=== PATIENT | female | born 1945 | race American Indian/Alaskan Native ===

== ENCOUNTER 2017-12-28 10:10 | Outpatient (CLI) | payer MEDICARE ==
--- NOTE | 2017-12-28 14:08 | Mammography Report ---
BILATERAL DIGITAL SCREENING MAMMOGRAM with CAD : 12/28/17 10:10:00 CLINICAL: Routine screening. COMPARISON:None available. FINDINGS: The breasts are heterogeneously dense, which may obscure small masses.Bilateral benign vascular calcifications. No mass, architectural distortion or suspicious calcifications. IMPRESSION: No mammographic evidence of malignancy. BI-RADS CATEGORY: 2 -- Benign RECOMMENDATION: Routine mammographic screening in one year. COMMENT: Patient follow-up letters are generated by our [employer] application.
== END 2017-12-28 10:11 | disposition home or self-care (01) ==
LOC: MAMMO 10:10
PROVIDERS: ATTEND Internal Medicine
DX: Z12.31 Encounter for screening mammogram for malignant neoplasm of breast (principal)
CPT/HCPCS: 77067

== ENCOUNTER 2019-01-02 09:37 | Outpatient (CLI) | payer MEDICARE ==
--- NOTE | 2019-01-02 16:20 | Mammography Report ---
DIGITAL SCREENING MAMMOGRAM WITH CAD, 01/02/2019 INDICATION: Routine screening mammography. TECHNIQUE: Digital bilateral 2D mammography was obtained in the craniocaudal and mediolateral obliq ue projections. This examination was interpreted with the benefit of Computer-Aided Detection analysi s. COMPARISON: 12/28/2017 FINDINGS: Breast Density: The breasts are heterogeneously dense, which may obscure small masses. There is no evidence of dominant mass, suspicious calcifications or architectural distortion in eithe r breast. Bilateral benign arterial calcifications. IMPRESSION: No mammographic evidence of malignancy. Follow up recommendation: Routine yearly BI-RADS Category 2: Benign. A "normal" or negative report should not discourage follow up or biopsy of a clinically significant f inding. A written summary of these findings will be mailed to the patient. The patient will be entered into a mammography reporting system which will generate a reminder letter for the patient's next appointmen t at the appropriate interval. The [employer] recommends yearly mammograms starting at age 40 and continuing as l sandra as a woman is in good health. Breast MRI is recommended for women with an approximate 20-25% or greater lifetime risk of breast cancer, including women with a strong family history of breast or ova batsheva cancer or who have been treated for Hodgkin's disease. Signer Name: Omari Aleman MD Signed: 01/02/2019 4:15 PM Workstation Name: [id number]
== END 2019-01-02 09:38 | disposition home or self-care (01) ==
LOC: MAMMO 09:37
PROVIDERS: ATTEND Internal Medicine
DX: Z12.31 Encounter for screening mammogram for malignant neoplasm of breast (principal)
CPT/HCPCS: 77067

== ENCOUNTER 2019-05-16 10:02 | Inpatient (IN) | payer MEDICARE ==
--- NOTE | 2019-05-16 10:19 | Emergency Department Report ---
HPI - General Time Seen by Provider: 05/16/19 10:05 - HPI HPI: Room 1 The patient is a 74-year-old female present with a chief complaint of expressive aphasia. Patient states her last known well time was last night around 20: 00 when she was speaking with her sister over the phone. Patient did not notice any abnormalities. The patient states she went to the bank this morning the [place] noticed that she had difficulty getting her words out and that her "mouth looked twisted." EMS was called and the patient was transported to the ED. The patient states she feels as though she is having difficulty getting her words out at times but it seems like it is improving although she is not yet back to her baseline. Patient denies weakness or numbness. ED Past Medical Hx - Past Medical History Previous Medical History?: No - Surgical History Additional Surgical History: Lipoma removal - Family History Family history: no significant - Social History Smoking Status: Never Smoker Substance Use Type: None ED Review of Systems ROS: Stated complaint: STROKE Other details as noted in HPI Constitutional: no symptoms reported Eyes: denies: eye pain ENT: denies: throat pain Respiratory: no symptoms reported Cardiovascular: denies: chest pain Endocrine: no symptoms reported Gastrointestinal: denies: abdominal pain Genitourinary: denies: dysuria Musculoskeletal: denies: back pain Neurological: other (Aphasia) Physical Exam - Physical Exam Physical Exam: GEN: WD WN lying on stretcher in NAD HEENT: NCAT, EOMI NECK: trachea midline PULM: CTA bilat. No resp distress noted CV: rrr no m/r/g ABD: s/nt/nd SKIN: no diaphoresis NEURO: GCS 15. Cranial nerves II through XII grossly intact, no drift. Patient exhibits expressive aphasia at times MUSCULOSKELETAL: No evidence of acute injury ED Medical Decision Making - Lab Data Result diagrams: 05/16/19 10:16 05/16/19 10:16 Laboratory Tests 05/16/19 05/16/19 05/16/19 10:16 10:16 10:16 WBC 2.5 L RBC 3.93 Hgb 13.1 Hct 38.4 MCV 98 H MCH 33 H MCHC 34 RDW 13.1 L Plt Count 146 Lymph % (Auto) 22.4 Alexander % (Auto) 9.8 H Eos % (Auto) 1.0 Baso % (Auto) 0.5 Lymph # 0.6 L Alexander # 0.2 Eos # 0.0 Baso # 0.0 Seg Neutrophils % 66.3 Seg Neutrophils # 1.6 L PT 12.6 INR 0.93 APTT 21.7 L Thrombin Time 16.8 Sodium 137 Potassium 4.2 Chloride 99.0 Carbon Dioxide 23 Anion Gap 19 BUN 22 H Creatinine 1.3 H Estimated GFR 49 BUN/Creatinine Ratio 17 Glucose 107 H POC Glucose Calcium 9.6 Troponin T < 0.010 05/16/19 10:37 WBC RBC Hgb Hct MCV MCH MCHC RDW Plt Count Lymph % (Auto) Alexander % (Auto) Eos % (Auto) Baso % (Auto) Lymph # Alexander # Eos # Baso # Seg Neutrophils % Seg Neutrophils # PT INR APTT Thrombin Time Sodium Potassium Chloride Carbon Dioxide Anion Gap BUN Creatinine Estimated GFR BUN/Creatinine Ratio Glucose POC Glucose 93 Calcium Troponin T - EKG Data -: EKG Interpreted by Me EKG shows normal: sinus rhythm Rate: normal - EKG Data When compared to previous EKG there are: previous EKG unavailable Interpretation: nonspecific ST-T wave brigida (T wave inversion in lead III) - Radiology Data Radiology results: report reviewed (CT head, CTA brain, CTA neck), image reviewed (CT head, CTA brain, CTA neck) Findings [facility] [address] [place] [address] Cat Scan Report Signed Patient: ROXANNE DEMPSEY MR#: [id number] 1221 : 1945 Acct:[id number] Age/Sex: 74 / F ADM Date: 05/16/19 Loc: ED Attending Dr: Ordering Physician: KENROY HAGER MD Date of Service: 05/16/19 Procedure(s): CT head/brain wo con Accession Number(s): [id number] cc: KENROY HAGER MD CT HEAD WITHOUT CONTRAST INDICATION : neuro deficits <6hrs or sx present upon awakening. TECHNIQUE: Axial imaging performed from the skull apex through the skull base without the use of contrast. Sagittal and coronal reformatted images. All CT scans at this location are performed using CT dose reduction for ALARA by means of automated exposure control. COMPARISON: None FINDINGS: Parenchyma: Mild age- appropriate volume loss and chronic white matter changes are identified. No evidence for hemorrhage, mass or large area of acute ischemia on noncontrast CT. No chronic infarct or extra-axial fluid collection. Ventricles: Ventricles are normal in size and appear symmetric. Bones: No acute osseous abnormality. Sinuses: Sinuses and mastoid air cells are clear. Soft tissues: Soft tissues including the orbits appear normal. IMPRESSION: No acute abnormality. Age appropriate volume loss and chronic white matter changes. These findings were discussed with Dr. Hager in the emergency department at 1019 hours EST. Signer Name: Kane Kaye Jr, MD Signed: 05/16/2019 10:20 AM Workstation Name: [id number] Transcribed By: TTR Dictated By: KANE KAYE JR, MD Electronically Authenticated By: KANE KAYE JR, MD Signed Date/Time: 05/16/19 1020 DD/ 1017 TD/TT: Findings [facility] [address] [place] [address] Cat Scan Report Signed Patient: ROXANNE DEMPSEY MR#: [id number] 1221 : 1945 Acct:[id number] Age/Sex: 74 / F ADM Date: 05/16/19 Loc: ED Attending Dr: Ordering Physician: MICHELLE HAWK Date of Service: 05/16/19 Procedure(s): CT angio neck Accession Number(s): [id number] cc: MICHELLE HAWK CTA NECK WITH CONTRAST HISTORY: Stroke COMPARISON: None. TECHNIQUE: Routine CTA of the neck is performed. 3-D/MIP reformats were postprocessed. Percentage stenosis is determined by direct quantitative measurements of diseased internal carotid artery diameter compared with normal distal internal carotid artery reference segments or by criteria similar to NASCET where applicable. All CT scans at this location are performed using CT dose reduction for ALARA by means of automated exposure control. CONTRAST: 100 ml of Omnipaque 350 FINDINGS: Aortic arch: No significant abnormality. Cervical vertebral arteries: No significant abnormality. The left vertebral artery arises from the aortic arch distal to the takeoff of the left subclavian artery. The right vertebral artery is dominant. Common carotid arteries: No significant abnormality. Minimal calcific plaques are noted in the proximal right ICA. Cervical internal carotid arteries: No significant abnormality. Additional findings: None. IMPRESSION: No large vessel occlusion or stenosis in the neck. CTA HEAD WITH CONTRAST HISTORY: Stroke COMPARISON: None. TECHNIQUE: Routine non- contrast CT Head, CTA of the head and post-contrast CT Head are performed. 3- D/MIP reformats postprocessed. All CT scans at this location are performed using CT dose reduction for ALARA by means of automated exposure control CONTRAST: 100 ml of Omnipaque 350 FINDINGS: CTA Head: Intracranial vertebral arteries: No significant abnormality. The right vertebral artery is dominant. Basilar artery: No significant abnormality. Posterior cerebral arteries: No significant abnormality. Intracranial internal carotid arteries: No significant abnormality. Anterior cerebral arteries: No significant abnormality. Middle cerebral arteries: No significant abnormality. Dural venous sinuses:Not optimally opacified. No significant abnormality. Additional findings: None. IMPRESSION: No evidence for large vessel occlusion, stenosis or aneurysm. Signer Name: Kane Kaye Jr, MD Signed: 05/16/2019 11:16 AM Workstation Name: [id number] Transcribed By: TTR Dictated By: KANE KAYE JR, MD Electronically Authenticated By: KANE KAYE JR, MD Signed Date/Time: 05/16/19 1116 DD/ 1110 TD/TT: - Differential Diagnosis CVA Critical care attestation.: If time is entered above; I have spent that time in minutes in the direct care of this critically ill patient, excluding procedure time. ED Disposition Clinical Impression: CVA (cerebral vascular accident) Disposition: 09 OP ADMIT IP TO THIS HOSP Is pt being admited?: Yes Does the pt Need Aspirin: Yes Condition: Fair Referrals: PRIMARY CARE, [Primary Care Provider] - 3-5 Days Time of Disposition: 11:30 (Hospitalist paged (Dr Carson))
[2019-05-16 10:23] LABS: Basophils % (Auto) 0.5 % (0.0-1.8); Hematocrit 38.4 % (30.3-42.9); Hemoglobin 13.1 gm/dl (10.1-14.3); Lymphocytes # (Auto) 0.6 K/mm3 (1.2-5.4); Lymphocytes % (Auto) 22.4 % (13.4-35.0); Mean Corpuscular HGB Conc 34 % (30-34); Mean Corpuscular Volume 98 fl (79-97); Monocytes # (Auto) 0.2 K/mm3 (0.0-0.8); Monocytes % (Auto) 9.8 % (0.0-7.3); Platelet Count 146 K/mm3 (140-440); Red Blood Count 3.93 M/mm3 (3.65-5.03); Red Cell Distribution Width 13.1 % (13.2-15.2)
--- NOTE | 2019-05-16 10:24 | Cat Scan Report ---
CT HEAD WITHOUT CONTRAST INDICATION : neuro deficits <6hrs or sx present upon awakening. TECHNIQUE: Axial imaging performed from the skull apex through the skull base without the use of con trast. Sagittal and coronal reformatted images. All CT scans at this location are performed using C T dose reduction for ALARA by means of automated exposure control. COMPARISON: None FINDINGS: Parenchyma: Mild age-appropriate volume loss and chronic white matter changes are identified. No bennett dence for hemorrhage, mass or large area of acute ischemia on noncontrast CT. No chronic infarct or e xtra-axial fluid collection. Ventricles: Ventricles are normal in size and appear symmetric. Bones: No acute osseous abnormality. Sinuses: Sinuses and mastoid air cells are clear. Soft tissues: Soft tissues including the orbits appear normal. IMPRESSION: No acute abnormality. Age appropriate volume loss and chronic white matter changes. These findings were discussed with Dr. Valerio in the emergency department at 1019 hours EST. Signer Name: Kane Kaye Jr, MD Signed: 05/16/2019 10:20 AM Workstation Name: [id number]
[2019-05-16 10:33] LABS: INR 0.93 (0.87-1.13)
[2019-05-16 10:34] LABS: Partial Thromboplastin Time 21.7 Sec. (24.2-36.6)
[2019-05-16 10:36] LABS: BUN/Creatinine Ratio 17; Blood Urea Nitrogen 22 mg/dL (7-17); Calcium 9.6 mg/dL (8.4-10.2); Hemolysis Index 13
[2019-05-16 10:46] LABS: Thrombin Time 16.8 Sec. (15.1-19.6)
--- NOTE | 2019-05-16 10:51 | Emergency Department Report ---
ED Neuro Deficit HPI - General Chief Complaint: Neuro Symptoms/Deficit Stated Complaint: STROKE Time Seen by Provider: 05/16/19 10:05 Source: patient Mode of arrival: Stretcher Limitations: No Limitations - History of Present Illness Initial Comments: [facility] Date of Service: 05/16/2019 09:56:49 Impression: RO Acute Ischemic Stroke Comments: The juan a was aphasic since this morning, unknown time. she was found by her banker to be aphasic, she does not know her medications. CT looks like left hyperdense MCa. Spoke with enrollment coordinator. Mechanism of Stroke: Possible Thromboembolic Metrics: Last Known Well: 05/15/2019 09:45:00 [employer] Notification Time: 05/16/2019 09:56:12 Arrival Time: 05/16/2019 09:56:49 Stamp Time: 05/16/2019 09:56:49 Time First Login Attempt: 05/16/2019 10:02:20 Video Start Time: 05/16/2019 10:02:20 Symptoms: no one at bedside. Patient is not a candidate for tPA. Patient was not deemed candidate for tPA thrombolytics because of Last Well K nown Above 4.5 Hours. Video End Time: 05/16/2019 10:34:50 CT head was reviewed and results were: left hyperdens mca ED Physician notified of diagnostic impression and management plan on 05/16/2019 10:35:02 Our recommendations are outlined below. Recommendations: Activate Stroke Protocol Admission/Order Set Stroke/Telemetry Floor Neuro Checks Bedside Swallow Eval DVT Prophylaxis IV Fluids, Normal Saline Head of Bed Below 30 Degrees Euglycemia and Avoid Hyperthermia (PRN Acetaminophen) Lipid Panel to Be Obtained, if Not Done in the Last Three Months Therapies: Physical Therapy, Occupational Therapy, Speech Therapy Assessment When Applicable Dysphaghia Screen: Swallow Evaluation, Bedside NPO Until Swallow Evaluation History of Present Illness: 73 year old female, 15 lack of speech 15 minutes, blood glucose 95. CT head was reviewed. Last seen normal was beyond 4.5 hours of presentation. There is no history of hemorrhagic complications or intracranial hemorrhage. There is no history of Recent Anticoagulants. There is no history of recent major surgery. There is no history of recent stroke. Examination: 1A: Level of Consciousness - Alert; keenly responsive + 0 1B: Ask Month and Age - Both Questions Right + 0 1C: Blink Eyes & Squeeze Hands - Performs Both Tasks + 0 2: Test Horizontal Extraocular Movements - Normal + 0 3: Test Visual Mendez - No Visual Loss + 0 4: Test Facial Palsy (Use Grimace if Obtunded) - Normal symmetry + 0 5A: Test Left Arm Motor Drift - No Drift for 10 Seconds + 0 5B: Test Right Arm Motor Drift - No Drift for 10 Seconds + 0 6A: Test Left Leg Motor Drift - No Drift for 5 Seconds + 0 6B: Test Right Leg Motor Drift - No Drift for 5 Seconds + 0 7: Test Limb Ataxia (FNF/Heel-Akhtar) - No Ataxia + 0 8: Test Sensation - Normal; No sensory loss + 0 9: Test Language/Aphasia - Normal; No aphasia + 0 10: Test Dysarthria - Normal + 0 11: Test Extinction/Inattention - No abnormality + 0 NIHSS Score: 0 Patient was informed the Neurology Consult would happen via TeleHealth consult by way of interactive audio and video telecommunications and consented to receiving care in this manner. Due to the immediate potential for life-threatening deterioration due to underlying acute neurologic illness, I spent 35 minutes providing critical care. This time includes time for face to face visit via telemedicine, review of medical records, imaging studies and discussion of findings with providers, the patient and/or family. Dr Keith Crain [facility] Case [id number] - Related Data Allergies/Adverse Reactions: Allergies Allergy/AdvReac Type Severity Reaction Status Date / Time No Known Allergies Allergy Unverified 12/28/17 10:11 ED Review of Systems ROS: Stated complaint: STROKE Other details as noted in HPI ED Neuro Physical Exam - General Limitations: No Limitations ED Course Vital Signs 05/16/19 10:29 Temperature 98.6 F Pulse Rate 79 Respiratory 23 Rate Blood Pressure 225/132 [Left] O2 Sat by Pulse 98 Oximetry - Lab Data Result diagrams: 05/16/19 10:16 Lab Results 05/16/19 05/16/19 Range/Units 10:16 10:37 WBC 2.5 L (4.5-11.0) K/mm3 RBC 3.93 (3.65-5.03) M/mm3 Hgb 13.1 (10.1-14.3) gm/dl Hct 38.4 (30.3-42.9) % MCV 98 H (79-97) fl MCH 33 H (28-32) pg MCHC 34 (30-34) % RDW 13.1 L (13.2-15.2) % Plt Count 146 (140-440) K/mm3 Lymph % (Auto) 22.4 (13.4-35.0) % [place] % (Auto) 9.8 H (0.0-7.3) % Eos % (Auto) 1.0 (0.0-4.3) % Baso % (Auto) 0.5 (0.0-1.8) % Lymph # 0.6 L (1.2-5.4) K/mm3 [place] # 0.2 (0.0-0.8) K/mm3 Eos # 0.0 (0.0-0.4) K/mm3 Baso # 0.0 (0.0-0.1) K/mm3 Seg Neutrophils % 66.3 (40.0-70.0) % Seg Neutrophils # 1.6 L (1.8-7.7) K/mm3 POC Glucose 93 (70-105) Critical care attestation.: If time is entered above; I have spent that time in minutes in the direct care of this critically ill patient, excluding procedure time. ED Disposition Condition: Stable Referrals: PRIMARY CARE, [Primary Care Provider] - 3-5 Days
--- NOTE | 2019-05-16 11:21 | Cat Scan Report ---
CTA NECK WITH CONTRAST HISTORY: Stroke COMPARISON: None. TECHNIQUE: Routine CTA of the neck is performed. 3-D/MIP reformats were postprocessed. Percentage st enosis is determined by direct quantitative measurements of diseased internal carotid artery diameter compared with normal distal internal carotid artery reference segments or by criteria similar to LUZMA CET where applicable. All CT scans at this location are performed using CT dose reduction for ALARA b y means of automated exposure control. CONTRAST: 100 ml of Omnipaque 350 FINDINGS: Aortic arch: No significant abnormality. Cervical vertebral arteries: No significant abnormality. The left vertebral artery arises from the ao rtic arch distal to the takeoff of the left subclavian artery. The right vertebral artery is dominant . Common carotid arteries: No significant abnormality. Minimal calcific plaques are noted in the proxim al right ICA. Cervical internal carotid arteries: No significant abnormality. Additional findings: None. IMPRESSION: No large vessel occlusion or stenosis in the neck. CTA HEAD WITH CONTRAST HISTORY: Stroke COMPARISON: None. TECHNIQUE: Routine non-contrast CT Head, CTA of the head and post-contrast CT Head are performed. 3-D /MIP reformats postprocessed. All CT scans at this location are performed using CT dose reduction for ALARA by means of automated e xposure control CONTRAST: 100 ml of Omnipaque 350 FINDINGS: CTA Head: Intracranial vertebral arteries: No significant abnormality. The right vertebral artery is dominant. Basilar artery: No significant abnormality. Posterior cerebral arteries: No significant abnormality. Intracranial internal carotid arteries: No significant abnormality. Anterior cerebral arteries: No significant abnormality. Middle cerebral arteries: No significant abnormality. Dural venous sinuses:Not optimally opacified. No significant abnormality. Additional findings: None. IMPRESSION: No evidence for large vessel occlusion, stenosis or aneurysm. Signer Name: Kane Kaye Jr, MD Signed: 05/16/2019 11:16 AM Workstation Name: [id number]
[2019-05-16] MEDS ORDERED: ASPIRIN 325 MG TAB PO ONE (11:31)
[2019-05-16] MEDS ORDERED: cloNIDine 0.2 MG TAB PO ONE (11:32)
[2019-05-16] MEDS: BUTALB/ACETAMINOPHEN/CAFFEINE TAB PO PRN (19:06)
[2019-05-16] MEDS ORDERED: ACETAMINOPHEN 325 MG TAB PO PRN ×2 (20:56→21:09)
[2019-05-16] MEDS ORDERED: oxyCODONE /ACETAMINOPHEN 5-325MG TAB PO PRN ×2 (20:56→21:09)
[2019-05-16] MEDS ORDERED: ONDANSETRON 4 MG/2 ML INJ IV PRN ×2 (20:56→21:09)
[2019-05-16] MEDS ORDERED: HYDROmorphone 1 MG/1 ML INJ IV PRN (20:56)
--- NOTE | 2019-05-16 21:08 | History and Physical Report ---
History of Present Illness Date of examination: 05/16/19 Date of admission: 05/16/19 11:35 Chief complaint: Slurred speech since 9 am for 2 hours-resolved History of present illness: The patient is a 74-year-old female present with a chief complaint of expressive aphasia. Patient states her last known well time was last night around 20: 00 when she was speaking with her sister over the phone. Patient did not notice any abnormalities. The patient states she went to the bank this morning the [place] noticed that she had difficulty getting her words out and that her "mouth looked twisted." EMS was called and the patient was transported to the ED. The patient states she feels as though she is having difficulty getting her words out at times but it seems like it is improving although she is not yet back to her baseline. Patient denies weakness or numbness. - Past Medical History Previous Medical History?: No - Surgical History Additional Surgical History: Lipoma removal - Family History Family history: no significant - Social History Smoking Status: Never Smoker Substance Use Type: None Review of Systems ROS: Stated complaint: STROKE Other details as noted in HPI Constitutional: no symptoms reported Eyes: denies: eye pain ENT: denies: throat pain Respiratory: no symptoms reported Cardiovascular: denies: chest pain Endocrine: no symptoms reported Gastrointestinal: denies: abdominal pain Genitourinary: denies: dysuria Musculoskeletal: denies: back pain Neurological: other (Aphasia) Medications and Allergies Allergies Allergy/AdvReac Type Severity Reaction Status Date / Time No Known Allergies Allergy Unverified 12/28/17 10:11 Active Meds: Active Medications Acetaminophen (Tylenol) 650 mg PO Q4H PRN PRN Reason: Pain MILD(1-3)/Fever >100.5/CABRERA Acetaminophen/Butalbital/Caffeine (Fioricet) 1 tab PO Q4H PRN PRN Reason: Headache Last Admin: 05/16/19 19:06 Dose: 1 tab Documented by: Famotidine (Pepcid) 20 mg PO BID ISHA Hydralazine HCl (Apresoline) 10 mg IV Q4HR PRN PRN Reason: Blood Pressure Hydromorphone HCl (Dilaudid) 0.5 mg IV Q3H PRN PRN Reason: Pain , Severe (7-10) Ondansetron HCl (Zofran) 4 mg IV Q8H PRN PRN Reason: Nausea And Vomiting Oxycodone/Acetaminophen (Percocet 5/325) 1 tab PO Q6H PRN PRN Reason: Pain, Moderate (4-6) Sodium Chloride (Sodium Chloride Flush Syringe 10 Ml) 10 ml IV BID ISHA Sodium Chloride (Sodium Chloride Flush Syringe 10 Ml) 10 ml IV PRN PRN PRN Reason: LINE FLUSH Exam - Constitutional Vitals: Temp Pulse Resp BP Pulse Ox 97.7 F 68 20 180/110 97 05/16/19 20:11 05/16/19 20:11 05/16/19 20:11 05/16/19 20:11 05/16/19 20:11 General appearance: Present: no acute distress, well-nourished - EENT Eyes: Present: PERRL ENT: hearing intact, clear oral mucosa - Neck Neck: Present: supple, normal ROM - Respiratory Respiratory effort: normal Respiratory: bilateral: CTA - Cardiovascular Heart rate: 78 Rhythm: regular Heart Sounds: Present: S1 & S2. Absent: rub, click - Extremities Extremities: pulses symmetrical, No edema Peripheral Pulses: within normal limits - Abdominal General gastrointestinal: Present: soft, non-tender, non-distended, normal bowel sounds Female genitourinary: Present: normal - Integumentary Integumentary: Present: clear, warm, dry - Musculoskeletal Musculoskeletal: gait normal, strength equal bilaterally - Psychiatric Psychiatric: appropriate mood/affect, intact judgment & insight - Neurologic Neurologic: CNII-XII intact, moves all extremities - Allied Health Allied health notes reviewed: nursing, case management Results - Labs CBC & Chem 7: 05/17/19 05:30 05/17/19 05:30 Labs: Laboratory Last Values WBC 2.5 K/mm3 (4.5-11.0) L 05/16/19 10:16 RBC 3.93 M/mm3 (3.65-5.03) 05/16/19 10:16 Hgb 13.1 gm/dl (10.1-14.3) 05/16/19 10:16 Hct 38.4 % (30.3-42.9) 05/16/19 10:16 MCV 98 fl (79-97) H 05/16/19 10:16 MCH 33 pg (28-32) H 05/16/19 10:16 MCHC 34 % (30-34) 05/16/19 10:16 RDW 13.1 % (13.2-15.2) L 05/16/19 10:16 Plt Count 146 K/mm3 (140-440) 05/16/19 10:16 Lymph % (Auto) 22.4 % (13.4-35.0) 05/16/19 10:16 [place] % (Auto) 9.8 % (0.0-7.3) H 05/16/19 10:16 Eos % (Auto) 1.0 % (0.0-4.3) 05/16/19 10:16 Baso % (Auto) 0.5 % (0.0-1.8) 05/16/19 10:16 Lymph # 0.6 K/mm3 (1.2-5.4) L 05/16/19 10:16 [place] # 0.2 K/mm3 (0.0-0.8) 05/16/19 10:16 Eos # 0.0 K/mm3 (0.0-0.4) 05/16/19 10:16 Baso # 0.0 K/mm3 (0.0-0.1) 05/16/19 10:16 Seg Neutrophils % 66.3 % (40.0-70.0) 05/16/19 10:16 Seg Neutrophils # 1.6 K/mm3 (1.8-7.7) L 05/16/19 10:16 PT 12.6 Sec. (12.2-14.9) 05/16/19 10:16 INR 0.93 (0.87-1.13) 05/16/19 10:16 APTT 21.7 Sec. (24.2-36.6) L 05/16/19 10:16 Thrombin Time 16.8 Sec. (15.1-19.6) 05/16/19 10:16 Sodium 137 mmol/L (137-145) 05/16/19 10:16 Potassium 4.2 mmol/L (3.6-5.0) 05/16/19 10:16 Chloride 99.0 mmol/L (98-107) 05/16/19 10:16 Carbon Dioxide 23 mmol/L (22-30) 05/16/19 10:16 Anion Gap 19 mmol/L 05/16/19 10:16 BUN 22 mg/dL (7-17) H 05/16/19 10:16 Creatinine 1.3 mg/dL (0.7-1.2) H 05/16/19 10:16 Estimated GFR 49 ml/min 05/16/19 10:16 BUN/Creatinine Ratio 17 % 05/16/19 10:16 Glucose 107 mg/dL (65-100) H 05/16/19 10:16 POC Glucose 93 (70-105) 05/16/19 10:37 Calcium 9.6 mg/dL (8.4-10.2) 05/16/19 10:16 Troponin T < 0.010 ng/mL (0.00-0.029) 05/16/19 10:16 - Imaging and Cardiology EKG: report reviewed CT Scan - head: report reviewed Imaging and Cardiology: Head CTA---Naf Neck CTA--NAF Head Ct---NAF Assessment and Plan Advance Directives: Yes (Full code) VTE prophylaxis?: Chemical Plan of care discussed with patient/family: Yes - Patient Problems (1) TIA (transient ischemic attack) Current Visit: Yes Status: Acute (2) CVA (cerebral vascular accident) Current Visit: Yes Status: Acute Plan to address problem: TIA w//u MRI brain orderd CDS /ECHO ordered Neuro consult (3) SAURABH (acute kidney injury) Current Visit: Yes Status: Acute Plan to address problem: Sec to VMN IV Fluids for now (4) DVT prophylaxis Current Visit: Yes Status: Acute Plan to address problem: On Heparin and GI prophylaxis
[2019-05-16] MEDS ORDERED: SODIUM CHLORIDE 0.9% 1000 ML 1,000 ML IV SCH (21:15)
[2019-05-16] MEDS: hydrALAZINE 20 MG/1 ML INJ IV PRN (21:19)
[2019-05-16] MEDS: FAMOTIDINE 20 MG TAB PO SCH (21:19)
[2019-05-16] MEDS ORDERED: FAMOTIDINE 20 MG TAB PO SCH (22:00)
[2019-05-17] MEDS: ASPIRIN 325 MG TAB PO SCH ×2 (00:25→11:30)
[2019-05-17 06:15] LABS: Basophils % (Auto) 0.7 % (0.0-1.8); Eosinophils % (Auto) 0.7 % (0.0-4.3); Hematocrit 37.9 % (30.3-42.9); Hemoglobin 12.6 gm/dl (10.1-14.3); Lymphocytes # (Auto) 0.6 K/mm3 (1.2-5.4); Lymphocytes % (Auto) 16.6 % (13.4-35.0); Mean Corpuscular HGB Conc 33 % (30-34); Mean Corpuscular Volume 98 fl (79-97); Monocytes # (Auto) 0.3 K/mm3 (0.0-0.8); Monocytes % (Auto) 7.5 % (0.0-7.3); Platelet Count 159 K/mm3 (140-440); Red Blood Count 3.86 M/mm3 (3.65-5.03); Red Cell Distribution Width 13.3 % (13.2-15.2)
[2019-05-17 06:44] LABS: Alanine Aminotransferase 12 units/L (7-56); BUN/Creatinine Ratio 17; Blood Urea Nitrogen 17 mg/dL (7-17); Calcium 9.5 mg/dL (8.4-10.2); Chol/HDL Ratio 3.45 %; HDL Cholesterol 66 mg/dL (40-59); Hemolysis Index 3; LDL Cholesterol,Direct 159 mg/dL (50-130)
--- NOTE | 2019-05-17 08:11 | Progress Note ---
Assessment and Plan Assessment and plan: Patient was admitted with slurring speech on stroke protocol Neurology evaluation noted and appreciated, neuro work-up is in progress --Acute CVA (cerebral vascular accident) Current Visit: Yes Status: Acute Not a candidate for TPA Aspirin statin , neuro work-up Neuro work-up as mentioned above Stroke protocol, PT OT ST Neuro work-up CT head without contrast; no acute abnormality chronic white matter changes CTA head; no evidence of large vessel occlusion or stenosis or aneurysm CTA neck; no large vessel occlusion or stenosis Echocardiogram; 60 to 65% EF,Positive PFO Carotid Doppler; no hemodynamically significant stenosis MRI brain; small acute infarct in the left posterior temporal lobe without associated hemorrhage or adverse mass effect --Presence of PFO; on echo Probably the cause of embolic CVA Anticoagulation per neuro/cardiology -- SAURABH (acute kidney injury) Current Visit: Yes Status: Acute Sec to vasomotor nephropathy IV Fluids monitor renal function avoid nephrotoxins. Nephrology evaluation if needed. --Dyslipidemia; Current Visit: Yes Status: Acute Statin, low-cholesterol diet -- DVT prophylaxis Current Visit: Yes Status: Acute On Heparin and GI prophylaxis Plan of care reviewed with the patient and the family at the bedside as well as the nurse Disposition; follow clinically, follow rest of the work-up Discharge when medically stable, hospital home health History Interval history: Patient seen and examined at her bedside this morning Last 24 hours events noted admitted with acute CVA CVA work-up is in progress Patient complains of generalized weakness Vital signs reviewed Hospitalist Physical - Constitutional Vitals: Temp Pulse Resp BP Pulse Ox 98.2 F 72 18 149/93 98 05/17/19 03:27 05/17/19 03:27 05/17/19 03:27 05/17/19 03:27 05/17/19 03:27 General appearance: Present: no acute distress, well-nourished - EENT Eyes: Present: PERRL, EOM intact - Neck Neck: Present: supple, normal ROM - Respiratory Respiratory effort: normal Respiratory: bilateral: diminished, negative: rales, rhonchi, wheezing - Cardiovascular Rhythm: regular Heart Sounds: Present: S1 & S2 - Extremities Extremities: no ischemia, No edema - Abdominal General gastrointestinal: soft, non-tender, non-distended, normal bowel sounds - Integumentary Integumentary: Present: clear, warm - Psychiatric Psychiatric: appropriate mood/affect, cooperative - Neurologic Neurologic: other (Residual weakness, slurring speech) Results - Labs CBC & Chem 7: 05/17/19 05:30 05/17/19 05:30 Labs: Laboratory Last Values WBC 3.4 K/mm3 (4.5-11.0) L 05/17/19 05:30 RBC 3.86 M/mm3 (3.65-5.03) 05/17/19 05:30 Hgb 12.6 gm/dl (10.1-14.3) 05/17/19 05:30 Hct 37.9 % (30.3-42.9) 05/17/19 05:30 MCV 98 fl (79-97) H 05/17/19 05:30 MCH 33 pg (28-32) H 05/17/19 05:30 MCHC 33 % (30-34) 05/17/19 05:30 RDW 13.3 % (13.2-15.2) 05/17/19 05:30 Plt Count 159 K/mm3 (140-440) 05/17/19 05:30 Lymph % (Auto) 16.6 % (13.4-35.0) 05/17/19 05:30 [place] % (Auto) 7.5 % (0.0-7.3) H 05/17/19 05:30 Eos % (Auto) 0.7 % (0.0-4.3) 05/17/19 05:30 Baso % (Auto) 0.7 % (0.0-1.8) 05/17/19 05:30 Lymph # 0.6 K/mm3 (1.2-5.4) L 05/17/19 05:30 [place] # 0.3 K/mm3 (0.0-0.8) 05/17/19 05:30 Eos # 0.0 K/mm3 (0.0-0.4) 05/17/19 05:30 Baso # 0.0 K/mm3 (0.0-0.1) 05/17/19 05:30 Seg Neutrophils % 74.5 % (40.0-70.0) H 05/17/19 05:30 Seg Neutrophils # 2.5 K/mm3 (1.8-7.7) 05/17/19 05:30 PT 12.6 Sec. (12.2-14.9) 05/16/19 10:16 INR 0.93 (0.87-1.13) 05/16/19 10:16 APTT 21.7 Sec. (24.2-36.6) L 05/16/19 10:16 Thrombin Time 16.8 Sec. (15.1-19.6) 05/16/19 10:16 Sodium 138 mmol/L (137-145) 05/17/19 05:30 Potassium 4.0 mmol/L (3.6-5.0) 05/17/19 05:30 Chloride 100.6 mmol/L (98-107) 05/17/19 05:30 Carbon Dioxide 20 mmol/L (22-30) L 05/17/19 05:30 Anion Gap 21 mmol/L 05/17/19 05:30 BUN 17 mg/dL (7-17) 05/17/19 05:30 Creatinine 1.0 mg/dL (0.7-1.2) 05/17/19 05:30 Estimated GFR > 60 ml/min 05/17/19 05:30 BUN/Creatinine Ratio 17 % 05/17/19 05:30 Glucose 106 mg/dL (65-100) H 05/17/19 05:30 POC Glucose 93 (70-105) 05/16/19 10:37 Hemoglobin A1c 5.1 % (4-6) 05/17/19 05:30 Calcium 9.5 mg/dL (8.4-10.2) 05/17/19 05:30 Total Bilirubin 0.30 mg/dL (0.1-1.2) 05/17/19 05:30 AST 22 units/L (5-40) 05/17/19 05:30 ALT 12 units/L (7-56) 05/17/19 05:30 Alkaline Phosphatase 63 units/L (35-129) 05/17/19 05:30 Troponin T < 0.010 ng/mL (0.00-0.029) 05/16/19 10:16 Total Protein 6.7 g/dL (6.3-8.2) 05/17/19 05:30 Albumin 4.0 g/dL (3.9-5) 05/17/19 05:30 Albumin/Globulin Ratio 1.5 % 05/17/19 05:30 Triglycerides 81 mg/dL (2-149) 05/17/19 05:30 Cholesterol 228 mg/dL (50-199) H 05/17/19 05:30 LDL Cholesterol Direct 159 mg/dL (50-130) H 05/17/19 05:30 HDL Cholesterol 66 mg/dL (40-59) H 05/17/19 05:30 Cholesterol/HDL Ratio 3.45 % 05/17/19 05:30 Active Medications - Current Medications Current Medications: Generic Name Dose Route Start Last Admin Trade Name Freq PRN Reason Stop Dose Admin Acetaminophen 650 mg 05/16/19 20:56 Tylenol PO Q4H PRN Pain MILD(1-3)/Fever >100.5/CABRERA Acetaminophen/Butalbital/Caffeine 1 tab 05/16/19 18:42 05/16/19 19:06 Fioricet PO 1 tab Q4H PRN Administration Headache Aspirin 325 mg 05/16/19 22:00 05/17/19 00:25 Aspirin PO 325 mg QDAY ISHA Administration Atorvastatin Calcium 40 mg 05/16/19 22:00 05/17/19 00:25 Lipitor PO 40 mg QHS ISHA Administration Famotidine 20 mg 05/16/19 22:00 05/16/19 21:19 Pepcid PO 20 mg BID ISHA Administration Hydralazine HCl 10 mg 05/16/19 20:21 05/16/19 21:19 Apresoline IV 10 mg Q4HR PRN Administration Blood Pressure Hydromorphone HCl 0.5 mg 05/16/19 20:56 Dilaudid IV Q3H PRN Pain , Severe (7-10) Sodium Chloride 1,000 mls @ 75 mls/hr 05/16/19 21:15 05/17/19 00:23 Nacl 0.9% 1000 Ml IV 75 mls/hr DIRECT ISHA Administration Ondansetron HCl 4 mg 05/16/19 20:56 Zofran IV Q8H PRN Nausea And Vomiting Oxycodone/Acetaminophen 1 tab 05/16/19 20:56 Percocet 5/325 PO Q6H PRN Pain, Moderate (4-6) Sodium Chloride 10 ml 05/16/19 22:00 05/17/19 00:25 Sodium Chloride Flush Syringe 10 Ml IV 10 ml BID ISHA Administration Sodium Chloride 10 ml 05/16/19 20:56 Sodium Chloride Flush Syringe 10 Ml IV PRN PRN LINE FLUSH
--- NOTE | 2019-05-17 10:19 | Magnetic Resonance Report ---
MRI BRAIN WITHOUT CONTRAST INDICATION / CLINICAL INFORMATION: stroke. TECHNIQUE: Multiplanar, multisequence MR images of the brain were obtained. COMPARISON: CTA head and neck done earlier on 05/16/2019. FINDINGS: BRAIN / INTRACRANIAL CONTENTS: There is a small acute infarct in the left posterior temporal lobe cor melissa. There is no associated hemorrhage or adverse mass effect. There is no additional acute infarct. There is moderate chronic small vessel ischemic change in the deep cerebral white matter. There is ag e commensurate mild ventricular and cisternal prominence. CRANIOCERVICAL JUNCTION: No significant abnormality. VASCULAR FLOW-VOIDS: No significant abnormality. ORBITS: Previous bilateral lens replacement. SINUSES / MASTOIDS: No significant abnormality of visualized sinuses and mastoid air cells. ADDITIONAL FINDINGS: None. IMPRESSION: 1. Small acute infarct in the left posterior temporal lobe without associated hemorrhage or adverse m ass effect. Signer Name: Alejandro Vega MD Signed: 05/17/2019 10:15 AM Workstation Name: [id number]
[2019-05-17] MEDS: FAMOTIDINE 20 MG TAB PO SCH ×2 (11:30→23:48)
[2019-05-17] MEDS: CLOPIDOGREL 75 MG TAB PO SCH (11:30)
--- NOTE | 2019-05-17 12:19 | Vascular Lab Report ---
BILATERAL CAROTID DOPPLER ULTRASOUND INDICATION : stroke TECHNIQUE: Grayscale and color Doppler imaging performed through the neck. COMPARISON: 05/16/2019 CTA neck FINDINGS: Right: There is no significant atherosclerotic disease. Peak systolic velocity in the CCA is 107 cm /s with end-diastolic velocity of 9 cm/s. Peak systolic velocity in the proximal ICA is 43 cm/s with end-diastolic velocity of 11 cm/s. ICA to CCA ratio is less than 2. There is antegrade flow in the E CA and the vertebral artery. Left: There is no significant atherosclerotic disease. Peak systolic velocity in the CCA is 117 cm/s with end-diastolic velocity of 25 cm/s. Peak systolic velocity in the proximal ICA is 41 cm/s with en d-diastolic velocity of 15 cm/s. ICA to CCA ratio is less than 2. There is antegrade flow in the ECA and the vertebral artery. IMPRESSION: No hemodynamically significant stenosis by NASCET criteria. Signer Name: Omari Aleman MD Signed: 05/17/2019 12:14 PM Workstation Name: [id number]
--- NOTE | 2019-05-17 14:24 | Consultation ---
History of Present Illness Consult date: 05/17/19 Reason for Consult: Difficulty speaking Chief complaint: Difficulty finding words. History of present illness: Patient is a 74-year-old woman with no previous known past medical history. She was last known well 2 days ago when she went to bed. Yesterday morning she woke up, and went to the bank. At the bank, the [place] noted that she was having difficulty finding words, and also noted a mild facial droop. Patient was then brought to [facility] for further evaluation. Her symptoms of difficulty with word finding him now resolved. Patient feels that she is back at baseline today. She was found to have SAURABH on admission. Blood pressure is also been elevated since admission. Past History Past Medical History: other (No known PMH) Social history: Lives alone Family history: no significant family history Medications and Allergies Allergies Allergy/AdvReac Type Severity Reaction Status Date / Time No Known Allergies Allergy Unverified 12/28/17 10:11 Active Meds: Active Medications Acetaminophen (Tylenol) 650 mg PO Q4H PRN PRN Reason: Pain MILD(1-3)/Fever >100.5/CABRERA Acetaminophen/Butalbital/Caffeine (Fioricet) 1 tab PO Q4H PRN PRN Reason: Headache Last Admin: 05/16/19 19:06 Dose: 1 tab Documented by: Aspirin (Halfprin Ec) 81 mg PO QDAY [facility] Atorvastatin Calcium (Lipitor) 40 mg PO QHS [facility] Last Admin: 05/17/19 00:25 Dose: 40 mg Documented by: Clopidogrel Bisulfate (Plavix) 75 mg PO QDAY [facility] Famotidine (Pepcid) 20 mg PO BID [facility] Last Admin: 05/16/19 21:19 Dose: 20 mg Documented by: Hydralazine HCl (Apresoline) 10 mg IV Q4HR PRN PRN Reason: Blood Pressure Last Admin: 05/16/19 21:19 Dose: 10 mg Documented by: Hydromorphone HCl (Dilaudid) 0.5 mg IV Q3H PRN PRN Reason: Pain , Severe (7-10) Sodium Chloride (Nacl 0.9% 1000 Ml) 1,000 mls @ 75 mls/hr IV DIRECT [facility] Last Admin: 05/17/19 00:23 Dose: 75 mls/hr Documented by: Ondansetron HCl (Zofran) 4 mg IV Q8H PRN PRN Reason: Nausea And Vomiting Oxycodone/Acetaminophen (Percocet 5/325) 1 tab PO Q6H PRN PRN Reason: Pain, Moderate (4-6) Sodium Chloride (Sodium Chloride Flush Syringe 10 Ml) 10 ml IV BID ISHA Last Admin: 05/17/19 00:25 Dose: 10 ml Documented by: Sodium Chloride (Sodium Chloride Flush Syringe 10 Ml) 10 ml IV PRN PRN PRN Reason: LINE FLUSH Review of Systems All systems: negative Neurological: change in speech Physical Examination - Vital Signs Vital Signs: Vital Signs Temp Pulse Resp BP Pulse Ox 98.6 F 79 23 225/132 98 05/16/19 10:05/16/19 10:05/16/19 10:05/16/19 10:05/16/19 10:29 - Physical Exam Narrative exam: Patient is alert, awake, oriented x4, follows complex commands. PERRL, EOMI, VF F, tongue midline, bilaterally intact to LT, no facial weakness noted. 5/5 strength in all extremities. Bilaterally intact light touch. Bilaterally intact to FTN and HTS. 2+ reflexes throughout. No dysarthria or aphasia noted. - Constitutional General appearance: comfortable - EENT EENT: Present: ATNC, PERRL, mucous membranes moist, hearing intact, vision intact - Respiratory Respiratory: Present: lungs clear, normal breath sounds - Cardiovascular Cardiovascular: Present: regular rate, normal S1, normal S2 Extremities: Present: no clubbing, cyanosis, no inflammation - Gastrointestinal Gastrointestinal: Present: normoactive bowel sounds, soft, non-tender - Integumentary Integumentary: Present: normal - Musculoskeletal Musculoskeletal: Present: no fluid collection, no pain - Psychiatric Psychiatric: Present: mood/affect appropriate - Level of Consciousness 1a. Level of Consciousness: alert/keenly responsive - LOC Questions 1b. LOC Questions: answers both correctly - LOC Command 1c. LOC Commands: performs tasks correctly - Best Gaze 2. Best Gaze: normal - Visual 3. Visual: no visual loss - Facial Palsy 4. Facial Palsy: normal symmetrical movement - Motor Arm 5a. Motor Arm Left: no drift 5b. Motor Arm Right: no drift - Motor Leg 6a. Motor Leg Left: no drift 6b. Motor Leg Right: no drift - Limb Ataxia 7. Limb Ataxia: absent - Sensory 8. Sensory: normal - Best Language 9. Best Language: no aphasia - Dysarthria 10. Dysarthria: normal - Extinction and Inattention 11. Extinction/Inattention: no abnormality - Scoring Total Score: 0 Stroke Severity: No Stroke Symptoms Results - Laboratory Findings CBC and BMP: 05/17/19 05:30 05/17/19 05:30 Abnormal Lab Findings: Abnormal Labs 05/16/19 05/16/19 05/16/19 10:16 10:16 10:16 WBC 2.5 L MCV 98 H MCH 33 H RDW 13.1 L [place] % (Auto) 9.8 H Lymph # 0.6 L Seg Neutrophils % Seg Neutrophils # 1.6 L APTT 21.7 L Carbon Dioxide BUN 22 H Creatinine 1.3 H Glucose 107 H Cholesterol LDL Cholesterol Direct HDL Cholesterol 05/17/19 05/17/19 05:30 05:30 WBC 3.4 L MCV 98 H MCH 33 H RDW [place] % (Auto) 7.5 H Lymph # 0.6 L Seg Neutrophils % 74.5 H Seg Neutrophils # APTT Carbon Dioxide 20 L BUN Creatinine Glucose 106 H Cholesterol 228 H LDL Cholesterol Direct 159 H HDL Cholesterol 66 H Assessment and Plan atient is a 74-year-old woman with no previous known past medical history, presents with difficulty with word finding. According patient's clinical findings, she has had an acute ischemic stroke. Plan: 1. Stroke: - MRI brain: Revealed left temporal, left frontal, and right frontal small acute infarcts. - CTA head/neck: No significant stenosis. - CT head: No acute abnormality. - Echo: Pending. -Recommend dual antiplatelet therapy with aspirin 81 mg daily and Plavix 75 mg daily for 30 days, after which Plavix can be stopped. Discussed risks and benefits of dual antiplatelet therapy with patient, and she agreed to starting this. - Cont. statin. LDL goal <70. LDL 159. - Telemetry monitoring while in house - PT/OT/ST - DVT Ppx: Recommend lovenox -As etiology of stroke is cryptogenic, recommend long-term cardiac monitoring with 30-day MCOT or ILR, to be done with cardiology as outpatient. 2. Hypertension: - Recommend BP goal of <220/120 to allow for permissive HTN for first 24 hours. Can target normotension after that. - Will continue to monitor patient. Thank you for allowing me to take part in the care of this patient. Wayne Mccord MD Neurology
[2019-05-17] MEDS: hydrALAZINE 20 MG/1 ML INJ IV PRN ×2 (17:14→23:51)
[2019-05-18] MEDS: FAMOTIDINE 20 MG TAB PO SCH ×2 (09:56→21:06)
[2019-05-18] MEDS: CLOPIDOGREL 75 MG TAB PO SCH (09:56)
[2019-05-18] MEDS: ASPIRIN EC 81 MG TAB PO SCH (09:56)
[2019-05-18] MEDS ORDERED: HALOPERIDOL LACTATE 5 MG/1 ML INJ IM ONE (12:00)
--- NOTE | 2019-05-18 15:17 | Progress Note ---
Assessment and Plan mayra is a 74-year-old woman with no previous known past medical history, presents with difficulty with word finding. According patient's clinical findings, she has had an acute ischemic stroke. Plan: 1. Stroke: - MRI brain: Revealed left temporal, left frontal, and right frontal small acute infarcts. - CTA head/neck: No significant stenosis. - CT head: No acute abnormality. - Echo: EF 60 to 65%, LA normal size, bubble study positive. -Given that bubble study was positive, checking upper and lower extremity venous Dopplers to rule out DVT. -If patient is found to have DVT on venous Dopplers, will require anticoagulation. Would recommend Eliquis, if okay with primary team. Given size of infarcts, would recommend starting Eliquis on May 20, 2019, to reduce risk of hemorrhagic transformation. If no DVT is found on venous Dopplers, would recommend long-term cardiac monitoring, and continuing aspirin and Plavix for 30 days, after which Plavix can be stopped. -Continue dual antiplatelet therapy with aspirin 81 mg daily and Plavix 75 mg daily for 30 days, after which Plavix can be stopped. Discussed risks and benefits of dual antiplatelet therapy with patient, and she agreed to starting this. - Cont. statin. LDL goal <70. LDL 159. - Telemetry monitoring while in house - PT/OT/ST - DVT Ppx: Recommend lovenox -As etiology of stroke is cryptogenic, recommend long-term cardiac monitoring with 30-day MCOT or ILR, to be done with cardiology as outpatient. 2. Hypertension: - Recommend BP goal of normotension. 3. Altered mental status: -Patient was reportedly confused earlier in the day. When I examined the pa tient today, she had returned to baseline mental status. Will check urinalysis and ammonia level. Patient was somewhat anxious, and thought that she was going to be leaving the hospital. She states that she needs to leave the hospital to visit her sister who is sick. This was confirmed with the patient's son, that the patient's sister is terminally ill. Patient's son also agreed that the eric ent was confused when he talked to her over the phone earlier in the day. -We will sign off, as I am not, neurology service over the weekend. Please consult neurologist covering the service over the weekend for further neurologic monitoring and management. Thank you for allowing me to take part in the care of this patient. Wayne Mccord MD Neurology Subjective Date of service: 05/18/19 Principal diagnosis: Stroke Interval history: Patient was found to be confused overnight. She reportedly thought she was at home not in the hospital. I spoke to her son over the phone, and he had spoken to her earlier in the day as well. Her son also felt that she was confused, and thought that she was in a different state when she was talking to him. Objective - Exam Narrative Exam: Patient is alert, awake, oriented x4 when I examined her today, follows complex commands. PERRL, EOMI, VF F, tongue midline, bilaterally intact to LT, no facial weakness noted. 5/5 strength in all extremities. Bilaterally intact light touch. Bilaterally intact to FTN and HTS. 2+ reflexes throughout. No dysarthria or aphasia noted. - Vital Sign Vital Signs - 12hr 05/18/19 05/18/19 05/18/19 04:15 05:09 08:09 Temperature 98.2 F 98.7 F Pulse Rate 86 92 H Respiratory 18 18 Rate Blood Pressure 174/115 163/89 O2 Sat by Pulse 96 98 Oximetry 05/18/19 10:00 Temperature Pulse Rate Respiratory Rate Blood Pressure O2 Sat by Pulse 98 Oximetry - General Apperance Constitutional: comfortable - EENT EENT: ATNC, PERRL, mucous membranes moist, hearing intact, vision intact - Respiratory Respiratory: lungs clear, normal breath sounds - Cardiovascular Cardiovascular: regular rate, normal S1, normal S2 Extremities: no clubbing, cyanosis, no inflammation - Gastrointestinal Gastrointestinal: normoactive bowel sounds, soft - Integumentary Integumentary: normal - Musculoskeletal Musculoskeletal: no fluid collection, no pain - Psychiatric Psychiatric: other (Patient is somewhat anxious, and states that she would like to go home. After talking to the patient in detail, and describing to her that she has remaining work-up for stroke, and altered mental status that was noted earlier in the day, the patient became calm and agreed to further work-up.) - Laboratory Findings CBC and BMP: 05/17/19 05:30 05/17/19 05:30 Abnormal Lab Findings: Abnormal Labs 05/16/19 05/16/19 05/16/19 10:16 10:16 10:16 WBC 2.5 L MCV 98 H MCH 33 H RDW 13.1 L [place] % (Auto) 9.8 H Lymph # 0.6 L Seg Neutrophils % Seg Neutrophils # 1.6 L APTT 21.7 L Carbon Dioxide BUN 22 H Creatinine 1.3 H Glucose 107 H Cholesterol LDL Cholesterol Direct HDL Cholesterol 05/17/19 05/17/19 05:30 05:30 WBC 3.4 L MCV 98 H MCH 33 H RDW [place] % (Auto) 7.5 H Lymph # 0.6 L Seg Neutrophils % 74.5 H Seg Neutrophils # APTT Carbon Dioxide 20 L BUN Creatinine Glucose 106 H Cholesterol 228 H LDL Cholesterol Direct 159 H HDL Cholesterol 66 H
--- NOTE | 2019-05-18 17:02 | Vascular Lab Report ---
DUPLEX DOPPLER LOWER EXTREMITY VEINS, BILATERAL INDICATION: rule out DVT. TECHNIQUE: Duplex doppler imaging was performed through the veins of both lower extremities using venous margoth janet and other maneuvers. COMPARISON: None available. FINDINGS: Right Common Femoral vein: Negative. Right Superficial Femoral vein: Negative. Right Popliteal vein: Negative. Right Calf veins: Negative. Left Common Femoral vein: Negative. Left Superficial Femoral vein: Negative. Left Popliteal vein: Negative. Left Calf veins: Negative. Additional findings: None. IMPRESSION: 1. No sonographic evidence for DVT in either lower extremity. DUPLEX DOPPLER UPPER EXTREMITY VENOUS, BILATERAL INDICATION / CLINICAL INFORMATION: rule out DVT. TECHNIQUE: Duplex doppler imaging was performed through the veins of the right and left upper extremity using ve nous compression and other maneuvers. COMPARISON: None available. FINDINGS: RIGHT INTERNAL JUGULAR VEIN: Negative. RIGHT SUBCLAVIAN VEIN: Negative. RIGHT AXILLARY VEIN: Negative. RIGHT BRACHIAL VEIN: Negative. RIGHT BASILIC VEIN (SUPERFICIAL): Negative. LEFT INTERNAL JUGULAR VEIN: Negative. LEFT SUBCLAVIAN VEIN: Negative. LEFT AXILLARY VEIN: Negative. LEFT BRACHIAL VEIN: Negative. LEFT BASILIC VEIN (SUPERFICIAL): Negative. ADDITIONAL FINDINGS: None. IMPRESSION: 1. No sonographic evidence for DVT in the right or left upper extremity. Signer Name: Sam Engel MD Signed: 05/18/2019 4:57 PM Workstation Name: [id number]
[2019-05-18] MEDS ORDERED: diphenhydrAMINE 50 MG/ML VIAL IM PRN (17:08)
[2019-05-18] MEDS ORDERED: diphenhydrAMINE 50 MG/ML VIAL IV PRN (17:11)
[2019-05-18 18:22] LABS: Bacteria,Urine 1+ /HPF (Negative); Bilirubin,Urine NEG (Negative); Blood,Urine NEG (Negative); Color,Urine Yellow (Yellow); Protein,Urine <15 mg/dL mg/dL (Negative); Urobilinogen,Urine < 2.0 mg/dL (<2.0)
[2019-05-18] MEDS: hydrALAZINE 20 MG/1 ML INJ IV PRN (20:56)
--- NOTE | 2019-05-18 21:01 | Progress Note ---
Assessment and Plan Assessment and plan: Assessment and plan: Patient was admitted with slurring speech on stroke protocol Neurology evaluation noted and appreciated, neuro work-up is in progress --Acute CVA (cerebral vascular accident) Current Visit: Yes Status: Acute Not a candidate for TPA Aspirin statin , neuro work-up Neuro work-up as mentioned above Stroke protocol, PT OT ST Neuro work-up CT head without contrast; no acute abnormality chronic white matter changes CTA head; no evidence of large vessel occlusion or stenosis or aneurysm CTA neck; no large vessel occlusion or stenosis Echocardiogram; 60 to 65% EF,Positive PFO Carotid Doppler; no hemodynamically significant stenosis MRI brain; small acute infarct in the left posterior temporal lobe without associated hemorrhage or adverse mass effect Venous Doppler bilateral upper extremities; no DVT Venous Doppler bilateral lower extremities; no DVT --Presence of PFO; on echo Probably the cause of embolic CVA Anticoagulation per neuro/cardiology -- SAURABH (acute kidney injury) Current Visit: Yes Status: Acute Sec to vasomotor nephropathy IV Fluids monitor renal function avoid nephrotoxins. Nephrology evaluation if needed. --Dyslipidemia; Current Visit: Yes Status: Acute Statin, low-cholesterol diet -- DVT prophylaxis Current Visit: Yes Status: Acute On Heparin and GI prophylaxis Plan of care reviewed with the patient and the family at the bedside as well as the nurse Disposition; follow clinically, follow rest of the work-up Discharge when medically stable, hospital home health History Interval history: Patient seen and examined at bedside this morning Patient's chart medications and consultants recommendations reviewed Patient feels slightly better Vital signs noted Hospitalist Physical - Constitutional Vitals: Temp Pulse Resp BP Pulse Ox 99.3 F 101 H 22 167/120 99 05/18/19 20:36 05/18/19 20:56 05/18/19 20:36 05/18/19 20:56 05/18/19 20:36 General appearance: Present: no acute distress, well-nourished - EENT Eyes: Present: PERRL, EOM intact - Neck Neck: Present: supple, normal ROM - Respiratory Respiratory effort: normal Respiratory: bilateral: diminished, negative: rales, rhonchi, wheezing - Cardiovascular Rhythm: regular Heart Sounds: Present: S1 & S2 - Extremities Extremities: no ischemia, No edema - Abdominal General gastrointestinal: soft, non-tender, non-distended, normal bowel sounds - Integumentary Integumentary: Present: clear, warm - Psychiatric Psychiatric: appropriate mood/affect, cooperative - Neurologic Neurologic: CNII-XII intact, moves all extremities Results - Labs CBC & Chem 7: 05/17/19 05:30 05/17/19 05:30 Labs: Laboratory Last Values WBC 3.4 K/mm3 (4.5-11.0) L 05/17/19 05:30 RBC 3.86 M/mm3 (3.65-5.03) 05/17/19 05:30 Hgb 12.6 gm/dl (10.1-14.3) 05/17/19 05:30 Hct 37.9 % (30.3-42.9) 05/17/19 05:30 MCV 98 fl (79-97) H 05/17/19 05:30 MCH 33 pg (28-32) H 05/17/19 05:30 MCHC 33 % (30-34) 05/17/19 05:30 RDW 13.3 % (13.2-15.2) 05/17/19 05:30 Plt Count 159 K/mm3 (140-440) 05/17/19 05:30 Lymph % (Auto) 16.6 % (13.4-35.0) 05/17/19 05:30 [place] % (Auto) 7.5 % (0.0-7.3) H 05/17/19 05:30 Eos % (Auto) 0.7 % (0.0-4.3) 05/17/19 05:30 Baso % (Auto) 0.7 % (0.0-1.8) 05/17/19 05:30 Lymph # 0.6 K/mm3 (1.2-5.4) L 05/17/19 05:30 [place] # 0.3 K/mm3 (0.0-0.8) 05/17/19 05:30 Eos # 0.0 K/mm3 (0.0-0.4) 05/17/19 05:30 Baso # 0.0 K/mm3 (0.0-0.1) 05/17/19 05:30 Seg Neutrophils % 74.5 % (40.0-70.0) H 05/17/19 05:30 Seg Neutrophils # 2.5 K/mm3 (1.8-7.7) 05/17/19 05:30 PT 12.6 Sec. (12.2-14.9) 05/16/19 10:16 INR 0.93 (0.87-1.13) 05/16/19 10:16 APTT 21.7 Sec. (24.2-36.6) L 05/16/19 10:16 Thrombin Time 16.8 Sec. (15.1-19.6) 05/16/19 10:16 Sodium 138 mmol/L (137-145) 05/17/19 05:30 Potassium 4.0 mmol/L (3.6-5.0) 05/17/19 05:30 Chloride 100.6 mmol/L (98-107) 05/17/19 05:30 Carbon Dioxide 20 mmol/L (22-30) L 05/17/19 05:30 Anion Gap 21 mmol/L 05/17/19 05:30 BUN 17 mg/dL (7-17) 05/17/19 05:30 Creatinine 1.0 mg/dL (0.7-1.2) 05/17/19 05:30 Estimated GFR > 60 ml/min 05/17/19 05:30 BUN/Creatinine Ratio 17 % 05/17/19 05:30 Glucose 106 mg/dL (65-100) H 05/17/19 05:30 POC Glucose 93 (70-105) 05/16/19 10:37 Hemoglobin A1c 5.1 % (4-6) 05/17/19 05:30 Calcium 9.5 mg/dL (8.4-10.2) 05/17/19 05:30 Total Bilirubin 0.30 mg/dL (0.1-1.2) 05/17/19 05:30 AST 22 units/L (5-40) 05/17/19 05:30 ALT 12 units/L (7-56) 05/17/19 05:30 Alkaline Phosphatase 63 units/L (35-129) 05/17/19 05:30 Ammonia 31.0 umol/L (25-60) 05/18/19 15:41 Troponin T < 0.010 ng/mL (0.00-0.029) 05/16/19 10:16 Total Protein 6.7 g/dL (6.3-8.2) 05/17/19 05:30 Albumin 4.0 g/dL (3.9-5) 05/17/19 05:30 Albumin/Globulin Ratio 1.5 % 05/17/19 05:30 Triglycerides 81 mg/dL (2-149) 05/17/19 05:30 Cholesterol 228 mg/dL (50-199) H 05/17/19 05:30 LDL Cholesterol Direct 159 mg/dL (50-130) H 05/17/19 05:30 HDL Cholesterol 66 mg/dL (40-59) H 05/17/19 05:30 Cholesterol/HDL Ratio 3.45 % 05/17/19 05:30 Urine Color Yellow (Yellow) 05/18/19 18:00 Urine Turbidity Clear (Clear) 05/18/19 18:00 Urine pH 6.0 (5.0-7.0) 05/18/19 18:00 Ur Specific [place] 1.006 (1.003-1.030) 05/18/19 18:00 Urine Protein <15 mg/dl mg/dL (Negative) 05/18/19 18:00 Urine Glucose (UA) Neg mg/dL (Negative) 05/18/19 18:00 Urine Ketones Neg mg/dL (Negative) 05/18/19 18:00 Urine Blood Neg (Negative) 05/18/19 18:00 Urine Nitrite Neg (Negative) 05/18/19 18:00 Urine Bilirubin Neg (Negative) 05/18/19 18:00 Urine Urobilinogen < 2.0 mg/dL (<2.0) 05/18/19 18:00 Ur Leukocyte Esterase Sm (Negative) 05/18/19 18:00 Urine WBC (Auto) 9.0 /HPF (0.0-6.0) H 05/18/19 18:00 Urine RBC (Auto) 3.0 /HPF (0.0-6.0) 05/18/19 18:00 U Epithel Cells (Auto) 1.0 /HPF (0-13.0) 05/18/19 18:00 Urine Bacteria (Auto) 1+ /HPF (Negative) 05/18/19 18:00 Active Medications - Current Medications Current Medications: Generic Name Dose Route Start Last Admin Trade Name Freq PRN Reason Stop Dose Admin Acetaminophen 650 mg 05/16/19 20:56 05/17/19 17:14 Tylenol PO 650 mg Q4H PRN Administration Pain MILD(1-3)/Fever >100.5/CABRERA Acetaminophen/Butalbital/Caffeine 1 tab 05/16/19 18:42 05/16/19 19:06 Fioricet PO 1 tab Q4H PRN Administration Headache Aspirin 81 mg 05/18/19 10:00 05/18/19 09:56 Halfprin Ec PO 81 mg QDAY ISHA Administration Atorvastatin Calcium 40 mg 05/16/19 22:00 05/17/19 23:47 Lipitor PO 40 mg QHS ISHA Administration Clopidogrel Bisulfate 75 mg 05/17/19 12:00 05/18/19 09:56 Plavix PO 75 mg QDAY ISHA Administration Diphenhydramine HCl 25 mg 05/18/19 17:11 05/18/19 18:06 Benadryl IV 25 mg Q6H PRN Administration agitation Famotidine 20 mg 05/16/19 22:00 05/18/19 09:56 Pepcid PO 20 mg BID ISHA Administration Hydralazine HCl 10 mg 05/16/19 20:21 05/18/19 20:56 Apresoline IV 10 mg Q4HR PRN Administration Blood Pressure Hydromorphone HCl 0.5 mg 05/16/19 20:56 05/17/19 23:33 Dilaudid IV 0.5 mg Q3H PRN Administration Pain , Severe (7-10) Sodium Chloride 1,000 mls @ 75 mls/hr 05/16/19 21:15 05/17/19 00:23 Nacl 0.9% 1000 Ml IV 75 mls/hr DIRECT ISHA Administration Ondansetron HCl 4 mg 05/16/19 20:56 Zofran IV Q8H PRN Nausea And Vomiting Oxycodone/Acetaminophen 1 tab 05/16/19 20:56 Percocet 5/325 PO Q6H PRN Pain, Moderate (4-6) Sodium Chloride 10 ml 05/16/19 22:00 05/18/19 09:56 Sodium Chloride Flush Syringe 10 Ml IV 10 ml BID ISHA Administration Sodium Chloride 10 ml 05/16/19 20:56 Sodium Chloride Flush Syringe 10 Ml IV PRN PRN LINE FLUSH
[2019-05-19] MEDS: BUTALB/ACETAMINOPHEN/CAFFEINE TAB PO PRN (07:30)
[2019-05-19] MEDS: hydrALAZINE 20 MG/1 ML INJ IV PRN (07:33)
[2019-05-19 09:20] VITALS: BP 130/81
[2019-05-19] MEDS: ASPIRIN EC 81 MG TAB PO SCH (09:47)
[2019-05-19] MEDS: FAMOTIDINE 20 MG TAB PO SCH (09:47)
[2019-05-19] MEDS: CLOPIDOGREL 75 MG TAB PO SCH (09:47)
--- NOTE | 2019-05-19 12:37 | Progress Note ---
Assessment and Plan Assessment and plan: Patient was admitted with slurring speech on stroke protocol Neurology evaluation noted and appreciated, neuro work-up is in progress --Acute CVA (cerebral vascular accident) Current Visit: Yes Status: Acute Not a candidate for TPA Aspirin statin , neuro work-up Neuro work-up as mentioned above Stroke protocol, PT OT ST Neuro work-up CT head without contrast; no acute abnormality chronic white matter changes CTA head; no evidence of large vessel occlusion or stenosis or aneurysm CTA neck; no large vessel occlusion or stenosis Echocardiogram; 60 to 65% EF,Positive PFO Carotid Doppler; no hemodynamically significant stenosis MRI brain; small acute infarct in the left posterior temporal lobe without associated hemorrhage or adverse mass effect Venous Doppler bilateral upper extremities; no DVT Venous Doppler bilateral lower extremities; no DVT --Presence of PFO; on echo Probably the cause of embolic CVA No need for anticoagulation as patient's Upper and lower extremity Doppler negative for DVT -- SAURABH (acute kidney injury) Current Visit: Yes Status: Acute Sec to vasomotor nephropathy IV Fluids monitor renal function avoid nephrotoxins. Nephrology evaluation if needed. --Dyslipidemia; Current Visit: Yes Status: Acute Statin, low-cholesterol diet -- DVT prophylaxis Current Visit: Yes Status: Acute On Heparin and GI prophylaxis Plan of care reviewed with the patient and the family at the bedside as well as the nurse Disposition; follow clinically, follow rest of the work-up Discharge when medically stable, hospital home health Hospitalist Physical Hospitalist Physical - Constitutional Vitals: Temp Pulse Resp BP Pulse Ox 99.5 F 89 20 130/81 96 05/19/19 09:20 05/19/19 09:20 05/19/19 09:20 05/19/19 09:20 05/19/19 09:20 General appearance: Present: no acute distress, well-nourished Results - Labs CBC & Chem 7: 05/17/19 05:30 05/17/19 05:30 Labs: Laboratory Last Values WBC 3.4 K/mm3 (4.5-11.0) L 05/17/19 05:30 RBC 3.86 M/mm3 (3.65-5.03) 05/17/19 05:30 Hgb 12.6 gm/dl (10.1-14.3) 05/17/19 05:30 Hct 37.9 % (30.3-42.9) 05/17/19 05:30 MCV 98 fl (79-97) H 05/17/19 05:30 MCH 33 pg (28-32) H 05/17/19 05:30 MCHC 33 % (30-34) 05/17/19 05:30 RDW 13.3 % (13.2-15.2) 05/17/19 05:30 Plt Count 159 K/mm3 (140-440) 05/17/19 05:30 Lymph % (Auto) 16.6 % (13.4-35.0) 05/17/19 05:30 [place] % (Auto) 7.5 % (0.0-7.3) H 05/17/19 05:30 Eos % (Auto) 0.7 % (0.0-4.3) 05/17/19 05:30 Baso % (Auto) 0.7 % (0.0-1.8) 05/17/19 05:30 Lymph # 0.6 K/mm3 (1.2-5.4) L 05/17/19 05:30 [place] # 0.3 K/mm3 (0.0-0.8) 05/17/19 05:30 Eos # 0.0 K/mm3 (0.0-0.4) 05/17/19 05:30 Baso # 0.0 K/mm3 (0.0-0.1) 05/17/19 05:30 Seg Neutrophils % 74.5 % (40.0-70.0) H 05/17/19 05:30 Seg Neutrophils # 2.5 K/mm3 (1.8-7.7) 05/17/19 05:30 PT 12.6 Sec. (12.2-14.9) 05/16/19 10:16 INR 0.93 (0.87-1.13) 05/16/19 10:16 APTT 21.7 Sec. (24.2-36.6) L 05/16/19 10:16 Thrombin Time 16.8 Sec. (15.1-19.6) 05/16/19 10:16 Sodium 138 mmol/L (137-145) 05/17/19 05:30 Potassium 4.0 mmol/L (3.6-5.0) 05/17/19 05:30 Chloride 100.6 mmol/L (98-107) 05/17/19 05:30 Carbon Dioxide 20 mmol/L (22-30) L 05/17/19 05:30 Anion Gap 21 mmol/L 05/17/19 05:30 BUN 17 mg/dL (7-17) 05/17/19 05:30 Creatinine 1.0 mg/dL (0.7-1.2) 05/17/19 05:30 Estimated GFR > 60 ml/min 05/17/19 05:30 BUN/Creatinine Ratio 17 % 05/17/19 05:30 Glucose 106 mg/dL (65-100) H 05/17/19 05:30 POC Glucose 93 (70-105) 05/16/19 10:37 Hemoglobin A1c 5.1 % (4-6) 05/17/19 05:30 Calcium 9.5 mg/dL (8.4-10.2) 05/17/19 05:30 Total Bilirubin 0.30 mg/dL (0.1-1.2) 05/17/19 05:30 AST 22 units/L (5-40) 05/17/19 05:30 ALT 12 units/L (7-56) 05/17/19 05:30 Alkaline Phosphatase 63 units/L (35-129) 05/17/19 05:30 Ammonia 31.0 umol/L (25-60) 05/18/19 15:41 Troponin T < 0.010 ng/mL (0.00-0.029) 05/16/19 10:16 Total Protein 6.7 g/dL (6.3-8.2) 05/17/19 05:30 Albumin 4.0 g/dL (3.9-5) 05/17/19 05:30 Albumin/Globulin Ratio 1.5 % 05/17/19 05:30 Triglycerides 81 mg/dL (2-149) 05/17/19 05:30 Cholesterol 228 mg/dL (50-199) H 05/17/19 05:30 LDL Cholesterol Direct 159 mg/dL (50-130) H 05/17/19 05:30 HDL Cholesterol 66 mg/dL (40-59) H 05/17/19 05:30 Cholesterol/HDL Ratio 3.45 % 05/17/19 05:30 Urine Color Yellow (Yellow) 05/18/19 18:00 Urine Turbidity Clear (Clear) 05/18/19 18:00 Urine pH 6.0 (5.0-7.0) 05/18/19 18:00 Ur Specific [place] 1.006 (1.003-1.030) 05/18/19 18:00 Urine Protein <15 mg/dl mg/dL (Negative) 05/18/19 18:00 Urine Glucose (UA) Neg mg/dL (Negative) 05/18/19 18:00 Urine Ketones Neg mg/dL (Negative) 05/18/19 18:00 Urine Blood Neg (Negative) 05/18/19 18:00 Urine Nitrite Neg (Negative) 05/18/19 18:00 Urine Bilirubin Neg (Negative) 05/18/19 18:00 Urine Urobilinogen < 2.0 mg/dL (<2.0) 05/18/19 18:00 Ur Leukocyte Esterase Sm (Negative) 05/18/19 18:00 Urine WBC (Auto) 9.0 /HPF (0.0-6.0) H 05/18/19 18:00 Urine RBC (Auto) 3.0 /HPF (0.0-6.0) 05/18/19 18:00 U Epithel Cells (Auto) 1.0 /HPF (0-13.0) 05/18/19 18:00 Urine Bacteria (Auto) 1+ /HPF (Negative) 05/18/19 18:00 Active Medications - Current Medications Current Medications: Generic Name Dose Route Start Last Admin Trade Name Freq PRN Reason Stop Dose Admin Acetaminophen 650 mg 05/16/19 20:56 05/17/19 17:14 Tylenol PO 650 mg Q4H PRN Administration Pain MILD(1-3)/Fever >100.5/CABRERA Acetaminophen/Butalbital/Caffeine 1 tab 05/16/19 18:42 05/19/19 07:30 Fioricet PO 1 tab Q4H PRN Administration Headache Aspirin 81 mg 05/18/19 10:00 05/19/19 09:47 Halfprin Ec PO 81 mg QDAY ISHA Administration Atorvastatin Calcium 40 mg 05/16/19 22:00 05/18/19 21:01 Lipitor PO 40 mg QHS ISHA Administration Clopidogrel Bisulfate 75 mg 05/17/19 12:00 05/19/19 09:47 Plavix PO 75 mg QDAY ISHA Administration Diphenhydramine HCl 25 mg 05/18/19 17:11 05/18/19 18:06 Benadryl IV 25 mg Q6H PRN Administration agitation Famotidine 20 mg 05/16/19 22:00 05/19/19 09:47 Pepcid PO 20 mg BID ISHA Administration Hydralazine HCl 10 mg 05/16/19 20:21 05/19/19 07:33 Apresoline IV 10 mg Q4HR PRN Administration Blood Pressure Hydromorphone HCl 0.5 mg 05/16/19 20:56 05/17/19 23:33 Dilaudid IV 0.5 mg Q3H PRN Administration Pain , Severe (7-10) Sodium Chloride 1,000 mls @ 75 mls/hr 05/16/19 21:15 05/17/19 00:23 Nacl 0.9% 1000 Ml IV 75 mls/hr DIRECT ISHA Administration Ondansetron HCl 4 mg 05/16/19 20:56 Zofran IV Q8H PRN Nausea And Vomiting Oxycodone/Acetaminophen 1 tab 05/16/19 20:56 05/18/19 21:01 Percocet 5/325 PO 1 tab Q6H PRN Administration Pain, Moderate (4-6) Sodium Chloride 10 ml 05/16/19 22:00 05/18/19 21:07 Sodium Chloride Flush Syringe 10 Ml IV 10 ml BID ISHA Administration Sodium Chloride 10 ml 05/16/19 20:56 Sodium Chloride Flush Syringe 10 Ml IV PRN PRN LINE FLUSH
--- NOTE | 2019-05-19 14:56 | Discharge Summary ---
Providers - Providers Date of Admission: 05/16/19 11:35 Date of discharge: 05/19/19 Attending physician: DREW ROGERS 05/16/19 21:09 Consult to Physician [CONS] Routine Comment: Consulting Provider: JUMA DURANT Physician Instructions: Reason For Exam: TIA 05/16/19 21:11 Occupational Therapy Evaluate and Treat [CONS] Routine Comment: Reason For Exam: Neuro deficits Physical Therapy Evaluation and Treat [CONS] Routine Comment: Reason For Exam: Neuro deficits Primary care physician: SURGICAL SUPPLY ASSISTANT Hospitalization Reason for admission: Expressive aphasia/acute CVA Condition: Fair Pertinent studies: Neuro work-up: MRI brain; small acute infarct in the left posterior temporal lobe without associated hemorrhage or adverse mass effect CT head without contrast; no acute abnormality chronic white matter changes CTA head; no evidence of large vessel occlusion or stenosis or aneurysm CTA neck; no large vessel occlusion or stenosis Echocardiogram; 60 to 65% EF,Positive PFO Carotid Doppler; no hemodynamically significant stenosis Venous Doppler bilateral upper extremities; no DVT Venous Doppler bilateral lower extremities; no DVT Hospital course: The patient is a 74-year-old female patient with a chief complaint of expressive aphasia. Patient states her last known well time was last night around 20: 00 when she was speaking with her sister over the phone. Patient was evaluated in ED, code stroke was initiated, not a candidate for TPA Admitted evaluated by neurology, had extensive neuro work-up as mentioned below, physical therapy occupational therapy speech therapy Patient had PFO on echo, neurology recommended bilateral upper and lower extremity venous Doppler which was negative for DVT No need for anticoagulation, patient advised to continue aspirin long-term and Plavix only for 1 month and then stop Patient also had acute kidney injury, advised to avoid nephrotoxins and closely monitor renal function. Patient renal function back to normal baseline Patient also advised to follow with cardiology for long-term monitoring of heart to rule out paroxysmal A. fib . PT OT evaluated, has no needs. Today patient is comfortable no new complaints Vital signs stable Physical examination unremarkable Cleared by consultants for discharge and follow-up per schedule --Acute CVA (cerebral vascular accident) Current Visit: Yes Status: Acute Not a candidate for TPA Aspirin statin , neuro work-up Neuro work-up as mentioned above Stroke protocol, PT OT ST --Presence of PFO; on echo Probably the cause of embolic CVA No need for anticoagulation as patient's Upper and lower extremity Doppler negative for DVT -- SAURABH (acute kidney injury)/resolved Current Visit: Yes Status: Acute Sec to vasomotor nephropathy IV Fluids monitor renal function avoid nephrotoxins. Resolved --Dyslipidemia; Current Visit: Yes Status: Acute Statin, low-cholesterol diet Stable at discharge Disposition: DC-01 TO HOME OR SELFCARE Time spent for discharge: 32 min Core Measure Documentation - Palliative Care Palliative Care/ Comfort Measures: Not Applicable - Core Measures Any of the following diagnoses?: stroke - Stroke Discharge Requirements Statin for LDL = or >70 mg/dl on DC: Yes Anticoag for atrial fib/atrial flutter: Not Applicable Reason for no anticoag for AF/F on DC: Not Indicated (No A. fib or flutter) Antithrombotic for ischemic stroke: Yes Exam - Constitutional Vitals: Temp Pulse Resp BP Pulse Ox 99.5 F 89 20 130/81 96 05/19/19 09:20 05/19/19 09:20 05/19/19 09:20 05/19/19 09:20 05/19/19 09:20 General appearance: Present: no acute distress, well-nourished - EENT Eyes: Present: PERRL, EOM intact - Neck Neck: Present: supple, normal ROM - Respiratory Respiratory effort: normal Respiratory: bilateral: diminished, negative: rales, rhonchi, wheezing - Cardiovascular Rhythm: regular Heart Sounds: Present: S1 & S2 - Extremities Extremities: no ischemia, No edema - Abdominal General gastrointestinal: Present: soft, non-tender, non-distended, normal bowel sounds - Integumentary Integumentary: Present: clear, warm - Musculoskeletal Musculoskeletal: strength equal bilaterally - Psychiatric Psychiatric: appropriate mood/affect, cooperative - Neurologic Neurologic: CNII-XII intact, moves all extremities Plan Activity: advance as tolerated, fall precautions Diet: other (cardiac diet) Additional Instructions: Fall precautions. Advised 1 month of Plavix and stop. Continue aspirin 81 mg p.o. daily. Advised to follow cardiology for long-term heart monitoring to check for paroxysmal A. fib flutter Follow up with: PRIMARY CARE, [Primary Care Provider] - 3-5 Days MALIK PETERSON MD [Referring] - 7 Days SUNNY ZELAYA MD [Staff Physician] - 7 Days Prescriptions: Aspirin EC [Halfprin EC] 81 mg PO QDAY #30 tablet AtorvaSTATin [Lipitor] 40 mg PO QHS #30 tablet Famotidine [Pepcid] 20 mg PO BID #30 tablet Clopidogrel [Plavix] 75 mg PO QDAY #30 tablet
== END 2019-05-19 17:15 | disposition home or self-care (01) | DRG 64 ==
LOC: ED 10:02 → 4A 11:35
PROVIDERS: ADMIT Internal Medicine; ATTEND Internal Medicine
DX: I63.9 Cerebral infarction, unspecified (principal); N17.0 Acute kidney failure with tubular necrosis; Q21.1 Atrial septal defect; R47.01 Aphasia; E78.5 Hyperlipidemia, unspecified; R47.81 Slurred speech; R41.82 Altered mental status, unspecified; I10 Essential (primary) hypertension
CPT/HCPCS: 36415; 70450; 70496; 70498; 70551; 80048; 80053; 80061; 81001; 82140; 82962; 83036; 84484; 85025; 85610; 85670; 85730; 87086; 93005; 93010; 93306; 93880; 93970; 96374; G0378; A9270-GY; J0360; J1170; J1200; J1630; J7030; Q9967